=== PATIENT | male | born 1955 | race Caucasian/White ===

== ENCOUNTER → 2023-11-14 09:12 | Outpatient (REF) | payer MEDICARE, OTHER, SELFPAY | LOC: RCS 09:12 | PROVIDERS: ATTENDING PHYSICIAN Internal Medicine Cardiovascular Disease; FAMILY PHYSICIAN Family Medicine | DX: I49.3 Ventricular premature depolarization (principal); R06.09 Other forms of dyspnea; I47.29 Other ventricular tachycardia | CPT/HCPCS: 93225; 93226 ==

== ENCOUNTER → 2023-11-30 13:46 | Outpatient (REF) | payer MEDICARE, OTHER, SELFPAY | LOC: RCS 13:46 | PROVIDERS: ATTENDING PHYSICIAN Internal Medicine Cardiovascular Disease; FAMILY PHYSICIAN Family Medicine | DX: R06.09 Other forms of dyspnea (principal); I47.29 Other ventricular tachycardia; I49.3 Ventricular premature depolarization | CPT/HCPCS: 93306 ==

== ENCOUNTER → 2024-01-09 08:13 | Outpatient (REF) | payer MEDICARE, OTHER, SELFPAY | LOC: REG 08:13 | PROVIDERS: ATTENDING PHYSICIAN Family Medicine | DX: M79.641 Pain in right hand (principal) | CPT/HCPCS: 73130 ==